=== PATIENT | female | born 1985 | race Caucasian/White ===

== ENCOUNTER 2018-09-03 19:22 | Outpatient (CLI) | payer OTHER | END 2018-09-03 20:45 | disposition home or self-care (01) | LOC: OBT 19:22 → L-D 19:23 → OBT 20:45 | DX: O62.9 Abnormality of forces of labor, unspecified (principal); O24.419 Gestational diabetes mellitus in pregnancy, unspecified control; Z3A.35 35 weeks gestation of pregnancy | CPT/HCPCS: 82962 ==

== ENCOUNTER 2018-10-14 01:11 | Inpatient (IN) | payer OTHER ==
[2018-10-14] MEDS: LACTATED RINGER'S 1,000 ML IV ×4 (01:35→11:23)
[2018-10-14] MEDS ORDERED: OXYTOCIN 30 UNITS/LR 500 ML IV ×3 (02:00→15:30)
[2018-10-14] MEDS ORDERED: CARBOPROST 250 MCG INJ IM ×2 (02:00→15:30)
[2018-10-14] MEDS ORDERED: BUTORPHANOL 2 MG INJ IV (02:00)
[2018-10-14] MEDS ORDERED: METHYLERGONOVINE 0.2 MG INJ IM (02:00)
[2018-10-14] MEDS ORDERED: MISOPROSTOL 200 MCG TAB PR ×2 (02:00→15:30)
[2018-10-14] MEDS ORDERED: LIDOCAINE 1% (MPF) 30 ML INJ INJ (02:00)
[2018-10-14 02:20] LABS: ADD MAN DIFF? NO
[2018-10-14 02:25] LABS: WHITE BLOOD COUNT 10.3 10^3/ul (4.8-10.8)
[2018-10-14 02:25] LABS: BASOPHILS % 0.2 % (0.0-2.0); EOSINOPHILS # 0.1 10^3/ul (0.0-0.5); EOSINOPHILS % 0.8 % (0.0-7.0); HEMATOCRIT 34.6 % (37.0-47.0); HEMOGLOBIN 10.3 g/dl (12.0-16.0); LYMPHOCYTES # 2.4 10^3/ul (0.8-2.9); LYMPHOCYTES % 22.7 % (15.0-51.0); MEAN CORPUSCULAR HGB CONC 29.8 g/dl (32.0-37.0); MEAN CORPUSCULAR VOLUME 77.2 fl (82.0-101.0); MEAN PLATELET VOLUME 11.2 fl (7.4-10.4); MONOCYTE # 0.7 10^3/ul (0.3-0.9); MONOCYTES % 7.1 % (0.0-11.0); NEUTROPHIL # 7.1 10^3/ul (1.6-7.5); NEUTROPHILS % 68.7 % (39.0-77.0); PLATELET COUNT 306 10^3/UL (140-415); RED BLOOD COUNT 4.48 10^6/ul (4.20-5.40); RED CELL DISTRIBUTION WIDTH 16.7 % (11.5-14.5)
[2018-10-14 02:45] LABS: INR 0.89; PARTIAL THROMBOPLASTIN TIME 23.2 Sec (23.0-35.0); PROTIME 12.2 Sec (11.9-14.9)
[2018-10-14 03:13] LABS: HEPATITIS B SURFACE ANTIGEN NEGATIVE (NEGATIVE)
[2018-10-14] MEDS ORDERED: ONDANSETRON 4 MG INJ IV ×2 (04:00→15:30)
[2018-10-14] MEDS ORDERED: NALOXONE (0.4 MG/ML) INJ IV (04:00)
[2018-10-14] MEDS: FENTAnyl 2MCG/ML-ROPIV 0.2% 100 ML BAG EPI (12:52)
[2018-10-14] MEDS: LACTATED RINGER'S 1,000 ML IV* ×2 (15:12→23:12)
[2018-10-14 15:29] LABS: CBV Base Excess -3.1 mmol/L; CBV COHb 1.5 %; CBV Oxygen Sat 68.8 mmHG; CBV Total Hemglobin 18.2 g/dl; Cord Blood Venous pO2 32.8 mmHG (15.0-45.0); Fraction OxyHgb Cord Venous 67.1 %; MODE ROOM AIR; MetHgb Cord Venous 0.9 %; Sample Type CBV; Site CORD
[2018-10-14 15:30] LABS: Arterial Cord Blood pCO2 47.4 mmHG (25-50); CBA Base Excess -2.4 mmol/L; CBA COHb 1.3 %; CBA Oxygen Sat 61.5 mmHG; CBA Total Hemglobin 17.8 g/dl; Fraction OxyHgb Cord Arterial 60.1 %; MODE ROOM AIR; Sample Type CBA; Site CORD
[2018-10-14] MEDS ORDERED: NA PHOSPHATE/BIPHOS 133 ML ENEMA PR (15:30)
[2018-10-14] MEDS ORDERED: MAGNESIUM HYDROXIDE 30ML CUP PO (15:30)
[2018-10-14] MEDS ORDERED: HYDROCODONE/APAP (5/325) TAB PO (15:30)
[2018-10-14] MEDS ORDERED: ONDANSETRON 4 MG TAB PO (15:30)
[2018-10-14] MEDS ORDERED: DIBUCAINE 1% 30 GM OINT TOP (15:30)
[2018-10-14] MEDS ORDERED: DIPHENHYDRAMINE 50 MG INJ IV (15:30)
[2018-10-14] MEDS ORDERED: DIPHENHYDRAMINE 25 MG CAP PO (15:30)
[2018-10-14] MEDS ORDERED: SENNA/DOCUSATE NA (8.6MG/50MG) TAB PO (15:30)
[2018-10-14] MEDS: OXYTOCIN 30 UNITS/LR 500 ML IV (15:33)
[2018-10-14] MEDS: IBUPROFEN 600 MG TAB PO ×2 (18:32→23:22)
[2018-10-14 19:44] LABS: RAPID PLASMA REAGIN NONREACTIVE (NR)
[2018-10-14] MEDS: SENNA/DOCUSATE NA (8.6MG/50MG) TAB PO (21:31)
[2018-10-15] MEDS: IBUPROFEN 600 MG TAB PO ×4 (05:10→23:46)
[2018-10-15 08:42] LABS: ADD MAN DIFF? NO
[2018-10-15 08:45] LABS: BASOPHILS % 0.3 % (0.0-2.0); EOSINOPHILS # 0.1 10^3/ul (0.0-0.5); EOSINOPHILS % 0.5 % (0.0-7.0); HEMATOCRIT 29.1 % (37.0-47.0); HEMOGLOBIN 8.8 g/dl (12.0-16.0); LYMPHOCYTES % 17.6 % (15.0-51.0); MEAN CORPUSCULAR HEMOGLOBIN 23.3 pg (29.0-33.0); MEAN CORPUSCULAR HGB CONC 30.2 g/dl (32.0-37.0); MEAN CORPUSCULAR VOLUME 77.2 fl (82.0-101.0); MEAN PLATELET VOLUME 11.1 fl (7.4-10.4); MONOCYTE # 0.7 10^3/ul (0.3-0.9); MONOCYTES % 6.2 % (0.0-11.0); NEUTROPHIL # 8.4 10^3/ul (1.6-7.5); NEUTROPHILS % 74.9 % (39.0-77.0); PLATELET COUNT 247 10^3/UL (140-415); RED BLOOD COUNT 3.77 10^6/ul (4.20-5.40); RED CELL DISTRIBUTION WIDTH 17.1 % (11.5-14.5)
[2018-10-15 08:45] LABS: WHITE BLOOD COUNT 11.2 10^3/ul (4.8-10.8)
[2018-10-15] MEDS: SENNA/DOCUSATE NA (8.6MG/50MG) TAB PO ×2 (09:17→21:29)
[2018-10-15] MEDS: HYDROCODONE/APAP (5/325) TAB PO (23:20)
[2018-10-16] MEDS: LANOLIN HPA 1 PKT TOP (04:41)
[2018-10-16] MEDS: IBUPROFEN 600 MG TAB PO ×3 (05:31→17:17)
[2018-10-16] MEDS: HYDROCODONE/APAP (5/325) TAB PO (05:31)
[2018-10-16] MEDS: SENNA/DOCUSATE NA (8.6MG/50MG) TAB PO ×2 (09:48→12:17)
[2018-10-16] MEDS: BENZOCAINE 20% 56 ML SPRAY TOP (09:48)
[2018-10-16] MEDS: WITCH HAZEL/GLYCERIN PAD PR (09:49)
[2018-10-16] MEDS: DIPHTH/TET/ACEL PERTUSS (ADULT) 0.5 ML VIAL IM* (09:50)
[2018-10-16] MEDS: VARICELLA VACCINE LIVE/PF 1,350 UNIT/0.5 ML ML SC* (09:50)
[2018-10-16] MEDS: MEASLES,MUMPS,RUBELLA VACCINE INJ SC* (16:59)
== END 2018-10-16 18:40 | disposition home or self-care (01) | DRG 807 ==
LOC: OBT 01:11 → L-D 01:11 → OBT 01:40 → L-D 01:40 → PP1 17:08
PROVIDERS: Specialist
PROC: 10E0XZZ Delivery of Products of Conception, External Approach (ICD-10-PCS; principal; 2018-10-14)
PROC: 10907ZC Drainage of Amniotic Fluid, Therapeutic from Products of Conception, Via Natural or Artificial Opening (ICD-10-PCS; 2018-10-14)
PROC: 10H07YZ Insertion of Other Device into Products of Conception, Via Natural or Artificial Opening (ICD-10-PCS; 2018-10-14)
PROC: 4A1H7CZ Monitoring of Products of Conception, Cardiac Rate, Via Natural or Artificial Opening (ICD-10-PCS; 2018-10-14)
DX: O76 Abnormality in fetal heart rate and rhythm complicating labor and delivery (principal); Z37.0 Single live birth; O24.429 Gestational diabetes mellitus in childbirth, unspecified control; O69.1XX0 Labor and delivery complicated by cord around neck, with compression, not applicable or unspecified; Z3A.39 39 weeks gestation of pregnancy; Z23 Encounter for immunization
CPT/HCPCS: 36415; 36600; 62319; 76815; 82803; 82962; 85025; 85610; 85730; 86592; 86850; 86900; 86901; 87340; 90716; 99464